=== PATIENT | male | born 1990 | race Caucasian/White ===

== ENCOUNTER 2023-10-21 14:23 | Outpatient (REF) | payer OTHER, SELFPAY ==
[2023-10-21 16:20] LABS: Vitamin B12 379 pg/mL (200-900)
== END 2023-10-21 14:24 | disposition home or self-care (01) ==
LOC: HO.LAB 14:23
PROVIDERS: PCP Internal Medicine; Visit Provider Psychiatry & Neurology Neurology
DX: G31.84 Mild cognitive impairment of uncertain or unknown etiology (principal)
CPT/HCPCS: 36415; 82607